=== PATIENT | male | born 1940 | race Caucasian/White ===

== ENCOUNTER 2017-09-18 06:30 | Inpatient (IN) ==
[~2017-09-18 06:30] MED LIST: ceFAZolin 1,000 MG, Sodium Chloride IRRigation 1,000 ML IR ONE
[2017-09-18] MEDS ORDERED: CeFAZolin Syr 2,000MG/20 ML 2,000 MG/20 ML SYRINGE IVPB ONE (06:58)
[2017-09-18] MEDS ORDERED: Heparin 1,000 UNITS/500 mL 1,500 ML ONE (07:27)
[2017-09-18] MEDS ORDERED: *HR* FentaNYL (PF) 100 MCG/2 ML VIAL ONE ×2 (07:30→11:31)
--- NOTE | 2017-09-18 07:30 | Anesthesia Evaluation PreOp ---
Date of Encounter: 09/18/17 Time of Encounter: 07:27 - Past History Planned Operation: Endo AAA repair Cardiac History: HTN, Hyperlipidemia, Other (09/04/17 stress : Impression: Perfusion imaging was negative for ischemia or infarct. Inferior wall artifact. Pharmacologic stress ECG is negative for ischemia at level of heart rate achieved. No appreciable change from baseline ECG. Rare PVCs noted during testing. Occasional atrial ectopy. Gated EF = 56%.) Pulmonary History: Denies Any Significant HX M[employer] PROJECT MANAGER History: Denies Any Significant HX Other Medical History: Diabetes Type II, Thyroid (hypo) Anesthesia History: No Prior Anesthetic Complications, Past Anesthesia (hernia repair, tonsillectomy) Alcohol Use: none Drug use: none Medications and Allergies Cetirizine HCl [Zyrtec] 10 mg PO DAILY #30 tablet 08/14/17 [Rx] Methocarbamol [Robaxin] 750 mg PO Q8HR PRN #30 tablet 08/14/17 [Rx] Tramadol HCl [Ultram] 50 mg PO Q8H PRN 4 Days #12 tab 08/14/17 [Rx] 3 Allergy/AdvReac Type Severity Reaction Status Date / Time No Known Allergies Allergy Verified 09/18/17 07:01 - Meds/Allergy Pre-op Review Medications Reviewed: Yes Allergies Reviewed: Yes Beta Blockers on Current Med List: Yes If Beta Blockers taken, Date/Time (Last Dose taken): pt did not start his prescription for beta skinny Anesthesia Results - Labs Laboratory Tests 09/11/17 09/11/17 09/11/17 16:39 16:39 16:39 WBC 5.3 Hgb 14.4 Hct 41.7 Plt Count 159 PT 12.4 H INR 1.1 APTT 33.0 Sodium Potassium Chloride Carbon Dioxide BUN Creatinine Glucose Est Mean Plasma Glucose 140 Hemoglobin A1c 6.5 H 09/11/17 16:39 WBC Hgb Hct Plt Count PT INR APTT Sodium 136 Potassium 3.9 Chloride 104 Carbon Dioxide 26 BUN 12 Creatinine 0.70 Glucose 167 H Est Mean Plasma Glucose Hemoglobin A1c - Imaging EKG: report reviewed (09/04/[address] abnormalities ad poss RV conduction delay) Additional studies: 08/28/17 : FINDINGS: Aorta: There is fusiform aneurysmal dilatation of the mid and distal aorta. The proximal aorta measures 2.5 x 2.3 cm. The mid aorta measures 5.4 x 6.1 cm. The distal aorta measures 5.4 x 5.7 cm. 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 There is less significant ectasia of the left iliac artery measures 1.6 x 1.2 cm. Anesthesia Exam O2 Sat Height 1.85 m Height 1.85 m Height 1.85 m Weight 92.986 kg Weight 92.986 kg Weight 92.986 kg O2 Sat by Pulse Oximetry 96 Vital Signs Temp Pulse Resp BP Pulse Ox 97.8 F 65 18 142/79 96 09/18/17 06:50 09/18/17 06:50 09/18/17 06:50 09/18/17 06:50 09/18/17 06:50 Height: 73" Weight: 199lbs NPO (# of Hours): >8 - HEENT Pupil (Motor): Pupils equal, EOMI Mallampati: I Teeth: Edentulous Denture Type: Upper: Complete, Lower: Complete Oral Opening: Greater than 3 - [employer]JECT MANAGER LOC: Oriented [employer]JECT MANAGER Motor: Normal RUE, Normal LUE, Normal RLE, Normal LLE, Normal Face [employer]GER Sensory: Normal: RUE, LUE, RLE, LLE, Face - Cardiac Rhythm: Regular - Pulmonary Breath Sounds: bilateral Clear Respiratory Effort: Symmetrical Anesthesia Assess/Plan ASA Score: 3 (HTN, DM, hypothyroid, AAA) Modified [place] Scale for Level of Consciousness: Cooperative, oriented, and tranquil Anesthetic Plan: General Monitoring Plan: Standard Monitors, A-Line Recovery Plan: PACU
[2017-09-18] MEDS ORDERED: *HR* Propofol 200 MG/20 ML VIAL IVP ONE (07:31)
[2017-09-18] MEDS ORDERED: Lidocaine -MPF 2% 2 ML VIAL ONE (07:31)
[2017-09-18] MEDS ORDERED: *HR* Rocuronium Bromide 50 MG/5 ML VIAL ONE (07:32)
[2017-09-18] MEDS ORDERED: *HR* Succinylcholine 200 MG/10 ML VIAL IVP ONE (07:32)
[2017-09-18] MEDS ORDERED: Lidocaine -MPF 4% 5 ML AMPUL ONE (07:34)
[2017-09-18] MEDS ORDERED: *HR* Remifentanil 1 MG VIAL IVP ONE (07:37)
[2017-09-18] MEDS ORDERED: Isovue-300 150 ML INFUS..BTL IV ONE ×3 (07:40→10:38)
[2017-09-18] MEDS ORDERED: Heparin 1,000 UNITS/500 mL 500 ML ONE (07:45)
--- NOTE | 2017-09-18 07:47 | History & Physical Report ---
Date of Encounter: 09/18/17 Time of Encounter: 07:35 24 Hour HP Update - Instructions Instructions: If the History and Physical is less than 30 days old and was completed prior to A.M. admission and or procedure and has NOT been updated on calendar day of procedure please complete this update prior to performing procedure. - Update Patient reports changes in Medical Condition: No Changes in examination, assessment, or condition: No Changes in Medication: No Preop tests/diagnostics Reviewed: Yes Surgery Remains Indicated: Yes Consent for Planned Operative Procedure(s) Verified: Yes - Pre-Operative Checklist Preoperative Checklist Indicated: Yes Prophylactic Antibiotic Ordered: Yes Home Medications Include Beta Ny: Yes Beta Ny Taken Today (Day of Surgery): Yes Beta Ny Taken Yesterday (Day Prior to Surgery): Yes Is VTE Prophylaxis Indicated?: Yes
[2017-09-18] MEDS: Ringers Solution, Lactated 1,000 ML IVC SCH ×2 (08:02→12:50)
[2017-09-18] MEDS ORDERED: Dexamethasone 4 MG/ML VIAL ONE (08:58)
[2017-09-18] MEDS ORDERED: Ondansetron 4 MG/2 ML VIAL ONE (08:58)
[2017-09-18] MEDS ORDERED: EPHEDrine 50 MG/ML VIAL ONE (09:09)
[2017-09-18] MEDS ORDERED: Esmolol 100 MG/10 ML VIAL IVP ONE (09:14)
[2017-09-18] MEDS ORDERED: *HR* PHENYLEPHRINE 1,000 MCG/10 ML SYRINGE IVP ONE (09:29)
[2017-09-18] MEDS ORDERED: *HR* Heparin 5,000 UNIT/ML VIAL ONE ×2 (09:42→10:42)
[2017-09-18] MEDS ORDERED: *HR* Phenylephrine 10 MG/ML VIAL ONE (09:48)
[2017-09-18] MEDS ORDERED: Heparin 1,000 UNITS/500 mL 1,000 ML ONE (10:05)
[2017-09-18] MEDS ORDERED: *HR* HYDROmorphone 2 MG/ML SYRINGE IVP PRN (11:12)
[2017-09-18] MEDS ORDERED: Ondansetron 4 MG/2 ML VIAL IVP PRN ×2 (11:12→15:39)
[2017-09-18] MEDS ORDERED: *HR* Labetalol 20 MG/4 ML SYRINGE IVP PRN (11:12)
--- NOTE | 2017-09-18 11:47 | Operative Note ---
Date of procedure: 09/18/17 Pre-op diagnosis: AAA Post-op diagnosis: same Procedure: Endovascular repair of abdominal aortic aneurysm (EVAR)-Medtronic Endurant II system--four component deployed--main body deployed via right side. Bilateral open femoral exposure. Catheter placement into aorta, nonselective. Kissing balloon angioplasty with a 10 x 40 mm diameter balloons of the aortic bifurcation Complications: none Anesthesia: GETA Surgeon: Benito Mac Was there an visitor services assistant present: No Estimated blood loss (cc): 150 Specimen: 0 Condition: stable Disposition: PACU Procedure in Detail: History Shawn Rinaldi is a 77-year-old white male who was found to have an abdominal aortic aneurysm by ultrasound screening that measured 6.[address] scan showed that the aneurysm was actually approximate 5.5-5.6 cm. He was asymptomatic. He underwent cardiac stress testing with pharmacologic means which was normal. The patient now comes for repair of the aneurysm. Procedure After informed consent was obtained the patient was taken from the [facility] area to the operating room. General endotracheal anesthesia was established. The abdomen groin and upper thighs were then sterilely prepped and draped. A timeout protocol was observed. 2 incisions were made to perform an open femoral exposure. The common femoral artery was controlled with vessel loops bilaterally. Then using 18-gauge needles the artery were punctured in a retrograde fashion. A guidewire was then inserted retrograde through an 8- Czech sheath. With this done a pigtail catheter was placed via the right side and an abdominal aortogram obtained. Measurements were taken. The main body was selected to be placed via the right side and a stenosis in the proximal left common iliac artery was noted which will be addressed later. The main body selected was a 32 x 14 x 103 mm Medtronic device. This was deployed to the point that the docking gate was opened. Then from the left side this was cannulated and appropriate manipulations were made to confirm that the wire was appropriately placed within the lumen of the stent graft. With this done the first of 2 components were placed via the left side. The patient initial component was a 16 x 13 x 158 mm. After this was done it was found that the limb was short and so therefore a additional extension piece was placed which was a 16 x 13 x 82 mm. Attention was then directed back to the right side. The right main body was then completely deployed. The top cap Was then recaptured and this was removed. This was then followed by placement of a second component on the right side which was a 16 x 13 x 158 mm device. It was noted with these manipulations that there was resistance and a stenosis in the area of the left common iliac artery. A Reliant balloon was placed up the left side and this did not relieve the stenosis. Therefore 2 10 x 40 mm balloons were inserted and a kissing balloon technique was utilized to dilate the proximal iliac system. The balloons were inflated for 1 minute. After this was done the Reliant balloon was taken over the wire and the stent graft was gently dilated from the right side with the Reliant balloon. With this done the marker pigtail catheter was reinserted via the left side. A completion aortogram was obtained. This demonstrated patent renal arteries bilaterally. The right iliac bifurcation was preserved. The left bifurcation demonstrated no flow in the left internal iliac artery. There were no signs of a type I or type III endoleak. With this information at hand the access devices were then removed. The puncture sites at the groin were closed using 6- 0 Prolene. After appropriate backbleeding and flushing the paimiut vessels were opened. Excellent pulsatile flow was monitored with palpation and Doppler evaluation. The 2 groin wounds were then closed in layers using absorbable suture. Dry sterile dressing was applied. There were no intraoperative complications. The patient tolerated the procedure well. He was extubated at the end of the operation. He was taken from the operating room to the recovery room in stable condition. Proximally 99 mL's of contrast were used for this procedure.
--- NOTE | 2017-09-18 15:02 | Anesthesia Evaluation Post Op ---
Date of Encounter: 09/18/17 Time of Encounter: 15:01 - Vital Signs Vital Signs: Vital Signs/O2 Sat, Most Current Temp Pulse Resp BP Pulse Ox 98.1 F 66 16 129/77 97 09/18/17 14:54 09/18/17 14:54 09/18/17 14:54 09/18/17 14:54 09/18/17 14:54 - Lungs Lungs: Clear Ascult./Percussion - Airway Airway: Non-obstructed - Cardiovascular Regular Rate - Mental Status Mental Status: Alert & Oriented, Answers Appropriately - Pain Pain Scale: 0 Pain Scale used: Numeric (1 - 10) - Nausea Vomiting Nausea Vomiting: Not Present - Hydration Hydration: Ice chips, Cisneros catheter - Discharge PostOp Status: Transfer Patient to floor Attestation: I have assessed this patient and find they meet discharge criteria.
[2017-09-18] MEDS ORDERED: traMADol 50 MG TABLET PO PRN (15:39)
[2017-09-18] MEDS ORDERED: Naloxone 0.4 MG/ML INJ IVP PRN (15:39)
[2017-09-18] MEDS ORDERED: *HR* OxyCODONE Immed Rel 5 MG TABLET PO PRN (15:39)
[2017-09-18] MEDS ORDERED: Methocarbamol 750 MG TABLET PO PRN (15:39)
[2017-09-18] MEDS: *HR* Metoprolol 5 MG/5 ML VIAL IVP SCH ×2 (16:17→17:39)
[2017-09-18] MEDS: Acetaminophen 325 MG TABLET PO PRN (16:17)
[2017-09-18] MEDS ORDERED: Mag Hydrox/Al Hydrox/Simeth 30 ML UDC PO PRN (18:22)
[2017-09-19] MEDS: *HR* Metoprolol 5 MG/5 ML VIAL IVP SCH ×5 (00:28→23:32)
[2017-09-19 06:36] LABS: Basophils % 0.2 %; Eosinophils % 0.1 %; Hematocrit 41.1 % (37.5-50.1); Hemoglobin 13.5 g/dL (12.9-16.9); Immature Granulocytes % 0.4 % (0-4); Lymphocytes # 1.7 K/mcL (0.6-4.6); Lymphocytes % 13.8 %; Mean Corpuscular HGB Conc 32.8 g/dL (31.6-35.5); Mean Corpuscular Hemoglobin 31.3 pg (28.0-33.3); Mean Corpuscular Volume 95.4 fL (83.0-100.0); Mean Platelet Volume 9.4 fL (9.4-12.4); Monocytes # 1.3 K/mcL (0.0-1.3); Monocytes % 10.3 %; Neutrophils # 9.3 K/mcL (1.6-8.9); Platelet Count 137 K/mcL (140-400); Red Blood Count 4.31 M/mcL (4.19-5.50); Red Cell Distribution Width 12.9 % (11.5-14.5); Segmented Neutrophils % 75.2 %
[2017-09-19 06:51] LABS: BUN/Creatinine Ratio 24 (6-26); Blood Urea Nitrogen 16 mg/dL (8-23); Calcium 9.1 mg/dL (8.6-10.3); Carbon Dioxide 25 mEq/L (23-29); Chloride 104 mEq/L (98-107); Glucose 144 mg/dL (70-105); Osmolality,Calculated 286 (280-300); Potassium 4.3 mEq/L (3.5-5.1); Sodium 136 mEq/L (136-145); eGFR For African Americans > 60 (> 60); eGFR For Non-African Americans > 60 (> 60)
[2017-09-19] MEDS: Loratadine 10 MG TABLET PO SCH (08:12)
[2017-09-19] MEDS: Acetaminophen 325 MG TABLET PO PRN (12:19)
[2017-09-19] MEDS: *HR* HYDROcodone/Acet 5/325 mg TABLET PO PRN ×2 (13:22→20:10)
--- NOTE | 2017-09-19 18:26 | Vascular/[facility] Progress Note ---
Date of Encounter: 09/19/17 Time of Encounter: 18:24 - Assessment and plan (1) AAA (abdominal aortic aneurysm) Current Visit: Yes Status: Acute Patient with abdominal aortic aneurysm. This is treated with endovascular stent graft. Qualifiers: Presence of rupture: without rupture Qualified Code(s): I71.4 - Abdominal aortic aneurysm, without rupture - Subjective Interval history: Patient is feeling well. He is doing well on postoperative day #1 following his endovascular aneurysm repair. Patient is feeling tired and would benefit from an additional day in the hospital and so therefore I anticipate he will be discharged tomorrow morning. Vital Signs, Last 4 Hours Temp Pulse Resp BP Pulse Ox 09/19/17 16:11 98.3 F 76 18 116/41 90 09/19/17 15:00 95 - Physical Examination General: Present: Conversant, No Apparent Distress HEENT: Present: Atraumatic Neck: Absent: JVD Cardiac: Present: Reg Rate and Rhythm Lungs: Present: Normal Breath Sounds Vascular: Present: Normal capillary refill Abdomen: Present: Soft, Non-tender Skin: Present: No rashes noted on visualized skin - VTE Documentation of Mechanical Device: Intermittent pneumatic compression device Results 09/19/17 06:16 09/19/17 06:16 Lab Results, Last 24 hours 09/19/17 09/19/17 06:16 06:16 WBC 12.3 H Hgb 13.5 Hct 41.1 Plt Count 137 L Sodium 136 Potassium 4.3 Chloride 104 Carbon Dioxide 25 BUN 16 Creatinine 0.68 L Glucose 144 H Calcium 9.1 Consult Discharge Plan - Plan Referrals: Emory Gastelum MD [Primary Care Provider] - 10/09/17 11:50 am Benito Mac MD [Partnered Physician] - 10/10/17 9:45 am
--- NOTE | 2017-09-19 18:29 | Discharge Summary ---
Orders not resulted at time of discharge: Pending orders 09/15/17 14:27 Red Blood Cells [BBK] Routine Date of Encounter: 09/20/17 Time of Encounter: 08:05 - Discharge Diagnosis (1) AAA (abdominal aortic aneurysm) Priority: Primary Status: Acute Comments: Patient has abdominal aortic aneurysm. patient was treated with endovascular repair. Qualifiers: Presence of rupture: without rupture Qualified Code(s): I71.4 - Abdominal aortic aneurysm, without rupture (2) HTN (hypertension) Priority: Secondary Status: Chronic Comments: chronic HTN Qualifiers: Hypertension type: essential hypertension Qualified Code(s): I10 - Essential (primary) hypertension - Hospital Course Hospital course: Mr. Rinaldi is a 77 year old male Who was found to have a significant size aneurysm. He was originally found to be 6.1 cm on ultrasound but CT scan revealed to be 5.6 cm. He had noninvasive testing as well as a non-excise cardiac stress test. Patient was felt to be an appropriate candidate for endovascular repair. He was admitted to the hospital on 09-18. He was taken to the operating room that day and underwent successful endovascular repair of an abdominal aortic aneurysm. The patient had an uneventful postoperative course. He was able to ambulate. Instructions were given in regards to wound care and medications. Patient was anticipated to be discharged on the morning of postoperative day #2. - Time Spent with Patient Total time spent providing and/or coordinating discharge services: - Discharge Medications Prescriptions: HYDROcodone/Acet 5/325 mg [[place] 5-325 mg] 1 tab PO Q6HR PRN 7 Days #10 tablet PRN Reason: Moderate Pain Home Medications: Cetirizine HCl [Zyrtec] 10 mg PO DAILY #30 tablet 08/14/17 [Rx] Methocarbamol [Robaxin] 750 mg PO Q8HR PRN #30 tablet 08/14/17 [Rx] Tramadol HCl [Ultram] 50 mg PO Q8H PRN 4 Days #12 tab 08/14/17 [Rx] HYDROcodone/Acet 5/325 mg [[place] 5-325 mg] 1 tab PO Q6HR PRN 7 Days #10 tablet 09/19/17 [Rx] Allergies/Adverse Reactions: 3 Allergy/AdvReac Type Severity Reaction Status Date / Time No Known Allergies Allergy Verified 09/18/17 07:01 Date of admission: 09/18/17 15:16 Primary care physician: Emory Gastelum MD Consults: None Procedure(s) Performed: Endovascular repair of abdominal aortic aneurysm Discharging clinician: Benito Mac Anticipated date of discharge: 09/20/17 Exam Vital Signs, Last 4 Hours Temp Pulse Resp BP Pulse Ox 09/19/17 16:11 98.3 F 76 18 116/41 90 09/19/17 15:00 95 General: Present: Conversant, No Apparent Distress, Well developed, Well nourished HEENT: Present: Atraumatic, Normocephaly Neck: Absent: JVD Cardiac: Present: Reg Rate and Rhythm Lungs: Present: Decreased breath sounds Neuro: Present: Alert and responsive Abdomen: Present: Soft, Non-tender - Patient Status Disposition: Home, Self-Care Condition: Good Functional capacity at discharge: independent ambulation Overall status at discharge: patient is progressing back to baseline - Discharge Instructions Follow Up With: Emory Gastelum MD [Primary Care Provider] - 10/09/17 11:50 am Benito Mac MD [Partnered Physician] - 10/10/17 9:45 am Additional Instructions: Keep surgical site dry for 5 days following surgery Resume usual home medications No lifting greater than 10 pounds No automobile driving Patient may walk inside and outside as tolerated Patient may walk up and down stairs as tolerated Patient to use incentive spirometer at home for total of 14 days and then discard-goal is to use incentive spirometer 10 times an hour while awake Patient ambulate 20 minutes twice a day at home. - Diet and Activity Activity: increase activity as tolerated Diet: advance to your usual diet - VTE Documentation of Mechanical Device: Intermittent pneumatic compression device
[2017-09-20] MEDS: *HR* Metoprolol 5 MG/5 ML VIAL IVP SCH (05:53)
[2017-09-20 07:14] VITALS: BP 132/101
[2017-09-20] MEDS: Loratadine 10 MG TABLET PO SCH (07:53)
[2017-09-20] MEDS: *HR* HYDROcodone/Acet 5/325 mg TABLET PO PRN (07:56)
== END 2017-09-20 11:15 | disposition home or self-care (01) | DRG 269 ==
LOC: SAMDAY 06:30 → 2NNU 15:16
PROVIDERS: ADMIT Surgery Vascular Surgery; ATTEND Surgery Vascular Surgery